=== PATIENT | female | born 1995 ===

== ENCOUNTER → 2022-08-16 | Outpatient (CLI) | payer BC ==
[~2022-08-16] MED LIST: POLY17UD
[2022-08-18 04:08] LABS: CHLAMYDIA TRACHOMATIS, NAA Negative (Negative)
== END ==
LOC: LAB 08:24 → LAB SHORT 08:24
PROVIDERS: Obstetrics & Gynecology
DX: O26.91 Pregnancy related conditions, unspecified, first trimester (principal)
CPT/HCPCS: 87491; 87591

== ENCOUNTER → 2024-12-01 | Outpatient (CLI) | payer OTHER, BC | LOC: LAB SHORT 12:00 → LAB 12:00 | DX: J02.0 Streptococcal pharyngitis (principal) | CPT/HCPCS: 87081; 87147 ==